=== PATIENT | female | born 1965 | race Caucasian/White ===

== ENCOUNTER 2023-05-05 07:56 | Outpatient (OUT) | payer OTHER, SELFPAY ==
--- NOTE | 2023-05-05 08:01 | MM_ITS ---
Patient: TYLER WALTER Exam Date: 05/05/2023 : 1965 Gender:F Ordering : DR Malathi Ely M.D. Admission #: [id number] Family : Order #: [id number] CLICK HERE TO VIEW EXAM RADIOLOGY REPORT PROCEDURE: MM TOMOSYNTHESIS SCREENING BI COMPARISON: MG MAMM SCREEN 3D BELINDA CAD, 04/18/2021. MG MAMM SCREEN 3D BELINDA CAD, 05/02/2022. INDICATIONS: Screening mammogram Z12.31 Calculator Name NCI Breast Cancer Risk Assessment Tool 5 Year Breast Cancer Risk 2.70% Lifetime Breast Cancer Risk 13.20% Personal Breast Cancer No Personal Ovarian Cancer No Treatments None Family Cancers Mother with breast cancer at age 50; Aunt-maternal with breast cancer at age 50; Aunt-maternal with breast cancer at age 50; Aunt-maternal with breast cancer at age 50; Aunt-maternal with breast cancer at age 50; Aunt-maternal with breast cancer at age ~50; Father with laryngeal cancer at age 50; Father with lung cancer at age 75; Brother with prostate cancer at age 62. LOCATION: [facility] BREAST COMPOSITION: Heterogeneously dense,which may obscure small masses. FINDINGS: DIAGNOSTIC CATEGORY 2--BENIGN FINDING. NO CHANGE FROM COMPARISON. kScattered benign-appearing nodules are present. Scattered benign-appearing calcifications are present. Scattered benign-appearing lymph nodes are present. RIGHT BREAST: No significant suspicious finding. LEFT BREAST: No significant suspicious finding. Stable focal asymmetry upper outer quadrant, mid breast RECOMMENDATIONS: ROUTINE MAMMOGRAM AND CLINICAL EVALUATION IN 12 MONTHS. PLEASE NOTE: A NORMAL MAMMOGRAM DOES NOT EXCLUDE THE POSSIBILITY OF BREAST CANCER. A CLINICALLY SUSPICIOUS PALPABLE LUMP SHOULD BE BIOPSIED. Dictated by: Tarun Lawton MD on 05/05/2023 at 13:10 Approved by: Tarun Lawton MD on 05/05/2023 at 13:11
== END 2023-05-05 07:57 | disposition home or self-care (01) ==
LOC: MAMMO 07:56
PROVIDERS: PCP Family Medicine; Visit Provider Family Medicine
DX: Z12.31 Encounter for screening mammogram for malignant neoplasm of breast (principal); Z80.3 Family history of malignant neoplasm of breast; Z80.1 Family history of malignant neoplasm of trachea, bronchus and lung; Z80.8 Family history of malignant neoplasm of other organs or systems
CPT/HCPCS: 77063; 77067

== ENCOUNTER 2023-09-12 09:26 | Outpatient (OUT) | payer OTHER, SELFPAY ==
[2023-09-12 10:10] LABS: Bilirubin Urine NEGATIVE (NEGATIVE); Blood Urine NEGATIVE (NEGATIVE); Clarity Urine CLEAR (CLEAR); Color Urine LT. YELLOW (YELLOW); Glucose Urine UA NEGATIVE (NEGATIVE); Ketones Urine NEGATIVE (NEGATIVE); Leukocyte Esterase Urine NEGATIVE (NEGATIVE); Nitrite Urine NEGATIVE (NEGATIVE); Protein Urine NEGATIVE (NEG/TRACE); Specific Gravity Urine 1.015 (1.005-1.025); Urobilinogen Urine 0.2 EU/dL (0.2-1.0)
[2023-09-12 10:12] LABS: Basophils Percent Auto 0.6 % (0.2-2.0); Eosinophils Absolute Auto 0.1 10^3/uL (0.0-0.7); Eosinophils Percent Auto 1.7 % (0.9-7.0); Hematocrit 38.8 % (36.0-48.0); Hemoglobin 12.7 g/dL (12.0-16.0); Immature Granulocytes Abs Auto 0.04 10^3/uL (0.00-0.03); Immature Granulocytes Pct Auto 0.6 % (0.0-0.5); Lymphocytes Percent Auto 27.9 % (20.5-60.0); Mean Corpuscular HGB Conc 32.7 g/dL (29.9-35.2); Mean Corpuscular Hemoglobin 29.5 pg (26.7-34.0); Mean Platelet Volume 9.7 fL (9.5-13.5); Monocytes Absolute Auto 0.5 10^3/uL (0.3-0.8); Monocytes Percent Auto 7.6 % (1.7-12.0); Neutrophils Absolute Auto 4.3 10^3/uL (1.4-6.5); Neutrophils Percent Auto 61.6 % (43.0-75.0); Platelet Count 438 10^3/uL (150-450); Red Blood Count 4.31 10^6/uL (4.20-5.40); Red Cell Distribution Width 12.9 % (11.0-15.0)
[2023-09-12 10:16] LABS: Urine Microscopic Indicated NO
[2023-09-12 10:26] LABS: Alanine Aminotransferase 27 U/L (14-59); Albumin Globulin Ratio 0.9; Albumin Level 3.9 g/dL (3.4-5.0); Alkaline Phosphatase 93 U/L (46-116); Anion Gap 14.6; Aspartate Amino Transferase 22 U/L (15-37); BUN Creatinine Ratio 12.1; Bilirubin Total 0.3 mg/dL (0.2-1.0); Calcium 9.5 mg/dL (8.5-10.1); Carbon Dioxide 28.2 mmol/L (21.0-32.0); Chloride 101 mmol/L (98-107); Estimated GFR (African America >60 (>=60); Estimated GFR (Non-African Ame >60 (>=60); Globulin 4.2 g/dL; Glucose 97 mg/dL (74-106); Potassium 3.8 mmol/L (3.5-5.1); Sodium 140 mmol/L (136-145); Total Protein 8.1 g/dL (6.4-8.2)
== END 2023-09-12 09:27 | disposition home or self-care (01) ==
LOC: LAB 09:27
PROVIDERS: PCP Family Medicine; Visit Provider Family Medicine
DX: N32.89 Other specified disorders of bladder (principal); R10.9 Unspecified abdominal pain
CPT/HCPCS: 36415; 80053; 81003; 85025

== ENCOUNTER 2024-04-12 09:06 | Outpatient (OUT) | payer OTHER, SELFPAY ==
[2024-04-12 12:42] LABS: Estimated Average Glucose 108 mg/dL; Glycohemoglobin A1C 5.4 % (4.5-6.2)
[2024-04-12 12:51] LABS: Alanine Aminotransferase 25 U/L (14-59); Albumin Globulin Ratio 1.1; Albumin Level 4.1 g/dL (3.4-5.0); Alkaline Phosphatase 74 U/L (46-116); Anion Gap 13.9; Aspartate Amino Transferase 17 U/L (15-37); BUN Creatinine Ratio 21.1; Bilirubin Total 0.4 mg/dL (0.2-1.0); Calcium 9.3 mg/dL (8.5-10.1); Carbon Dioxide 28.3 mmol/L (21.0-32.0); Chloride 104 mmol/L (98-107); Chol HDL Ratio 4.1; Cholesterol 297 mg/dL (<=200); Estimated GFR (African America >60 (>=60); Estimated GFR (Non-African Ame >60 (>=60); Globulin 3.6 g/dL; Glucose 100 mg/dL (74-106); HDL Cholesterol 73 mg/dL (40-60); Potassium 4.2 mmol/L (3.5-5.1); Sodium 142 mmol/L (136-145); Total Protein 7.7 g/dL (6.4-8.2); Triglycerides 142 mg/dL (<=150); VLDL CHOLESTEROL 28.4 mg/dL
== END 2024-04-12 09:07 | disposition home or self-care (01) ==
LOC: LAB 09:07
PROVIDERS: PCP Family Medicine; Visit Provider Family Medicine
DX: Z00.00 Encounter for general adult medical examination without abnormal findings (principal)
CPT/HCPCS: 36415; 80053; 80061; 83036

== ENCOUNTER 2024-05-10 08:43 | Outpatient (OUT) | payer OTHER, SELFPAY ==
--- NOTE | 2024-05-10 08:48 | MM_ITS ---
Patient Name: TYLER WALTER MR#: [id number] : 1965 Exam Date: 05/10/2024 Ordering Doctor: DR Malathi Ely M.D. RADIOLOGY REPORT PROCEDURE: MM TOMOSYNTHESIS SCREENING BI COMPARISON: MM TOMOSYNTHESIS SCREENING BI, 05/05/2023. MG MAMM SCREEN 3D BELINDA CAD, 05/02/2022. MG MAMM SCREEN 3D BELINDA CAD, 04/18/2021. MG MAMM BELINDA SCRN W CAD DIG, 10/14/2013. INDICATIONS: Screening Calculator Name NCI Breast Cancer Risk Assessment Tool 5 Year Breast Cancer Risk 2.80% Lifetime Breast Cancer Risk 12.90% Personal Breast Cancer No Personal Ovarian Cancer No Treatments None Family Cancers Mother with breast cancer at age 50; Aunt-maternal with breast cancer at age 50; Aunt-maternal with breast cancer at age 50; Aunt-maternal with breast cancer at age 50; Aunt-maternal with breast cancer at age 50; Aunt-maternal with breast cancer at age ~50; Father with laryngeal cancer at age 50; Father with lung cancer at age 75; Brother with prostate cancer at age 62. LOCATION: [facility] BREAST COMPOSITION: The breasts are heterogeneously dense,which may obscure small masses. FINDINGS: DIAGNOSTIC CATEGORY 2--BENIGN FINDING: RIGHT BREAST: No significant suspicious finding. Scattered benign-appearing lymph nodes are present. No significant change has occurred. LEFT BREAST: No significant suspicious finding. Scattered benign-appearing lymph nodes are present. No significant change has occurred. RECOMMENDATIONS: ROUTINE MAMMOGRAM AND CLINICAL EVALUATION IN 12 MONTHS. PLEASE NOTE: A NORMAL MAMMOGRAM DOES NOT EXCLUDE THE POSSIBILITY OF BREAST CANCER. A CLINICALLY SUSPICIOUS PALPABLE LUMP SHOULD BE BIOPSIED. Dictated by: Manish Montalvo M.D. on 05/11/2024 at 15:21 Approved by: Manish Montalvo M.D. on 05/11/2024 at 15:23
--- NOTE | 2024-05-10 09:14 | XR_ITS ---
[address] [address] Patient Name: TYLER WALTER MRN: [id number] date: 1965 Sex: F Assigned Patient Location: [facility] Current Patient Location: [facility] Accession/Order Number: [id number] Exam Date: 05/10/2024 09:05 Report Date: 05/10/2024 10:21 At the request of: PÉREZ SERRANO Procedure: XR DEXA axial skeleton EXAMINATION: XR DEXA axial skeleton HISTORY: Osteoporosis M81.0 COMPARISON: DEXA bone densitometry 05/02/2022 TECHNIQUE: Dual-energy X-ray absorptiometry (DXA) was performed. FINDINGS: SPINE ANALYSIS: Average bone mineral density is 1.158 g/cm2. T-score (standard deviation relative to young adult mean): -0.2 . +2.3% change since prior study. HIP ANALYSIS: Lowest bone mineral density is within the left femoral neck, 0.782 g/cm2. T-score (standard deviation relative to young adult mean): -1.8 . -0.5% change since prior study. XR/XR DEXA axial skeleton IMPRESSION: World Health Organization Classification: Osteopenia - Moderate Fracture Risk FRAX: Cannot be calculated. Pharmacologic treatment recommendations * No uniform recommendation applies to all patients. Management plans must be individualized. * Consider initiating pharmacologic treatment in postmenopausal women and men >= 50 years of age who have the following: Primary fracture prevention: * T-score <= - 2.5 at the femoral neck, total hip, lumbar spine, 33% radius (some uncertainty with existing data) by DXA. * Low bone mass (osteopenia: T-score between - 1.0 and - 2.5) at the femoral neck or total hip by DXA with a 10-year hip fracture risk >= 3% or a 10-year major osteoporosis-related fracture risk >= 20% (i.e., clinical vertebral, hip, forearm, or proximal humerus) based on the US-adapted FRAXregistered model. Secondary fracture prevention: * Fracture of the hip or vertebra regardless of BMD [4, 5]. * Fracture of proximal humerus, pelvis, or distal forearm in persons with low bone mass (osteopenia: T-score between - 1.0 and - 2.5). The decision to treat should be individualized in persons with a fracture of the proximal humerus, pelvis, or distal forearm who do not have osteopenia or low BMD [12, 13]. Lupe MS, Mayur SL, Shanon KL, Анна EM, Taiwo KG, AJ, Carlie ES. The clinician's guide to prevention and treatment of osteoporosis. Osteoporos Int. 2021;33(10):5737-2736. doi: 10.1007/v15150-178-99660-d. Epub 2021Mar 07. Erratum in: Osteoporos Int. 2021Jun 06;: PMID: [id number]; PMCID: [id number]. Electronically authenticated by: PHIL HERNANDEZ Date: 05/10/2024 10:21
== END 2024-05-10 08:44 | disposition home or self-care (01) ==
LOC: MAMMO 08:43
PROVIDERS: PCP Family Medicine; Visit Provider Family Medicine
DX: Z12.31 Encounter for screening mammogram for malignant neoplasm of breast (principal); M81.0 Age-related osteoporosis without current pathological fracture; Z80.3 Family history of malignant neoplasm of breast; Z80.1 Family history of malignant neoplasm of trachea, bronchus and lung; Z80.42 Family history of malignant neoplasm of prostate; Z80.8 Family history of malignant neoplasm of other organs or systems; M85.80 Other specified disorders of bone density and structure, unspecified site
CPT/HCPCS: 77063; 77067; 77080

== ENCOUNTER 2025-04-14 09:14 | Outpatient (OUT) | payer OTHER, SELFPAY ==
--- OUTSIDE RECORDS SUMMARY | 2025-04-14 05:02 | XMS_ITS | Continuity of Care Document ---
Author Organization [facility] Address [address] [place] [address] Phone Support Name Relationship Address Phone Barry Terry Emergency Contact [address] [facility] [address] [place] [address] Satish Sands Emergency Contact Unknown Malathi Ely MD Personal Relationship [address] [place] [address] Care Teams Patient Care Team Team Status: Active Member Role Status Dates Malathi Ely MD Primary Care Provider Active Patient Care Team Team Status: Inactive Member Role Status Dates Malathi Ely MD Primary Care Provide r, Attending Provider Active Start: April 14, 2025 End: April 14, 2025 Chief Complaint and Reason for Visit Chief Complaint Admit Date Wellness April 14, 2025 8:24a m Reason for Visit Admit Date Screening mammogram for breast cancer 2024 8:24am Wellness examination April 14, 2025 8:24 am Allergies, Adverse Reactions, Alerts Allergen Type Severity Reaction Last Updated Verified Status amoxicillin Allergy Unknown Rash April 14, 2025 8:38am Yes Active Social History Smoking Status Status Start Date End Date Date of Observa tion Ex-smoker (finding) April 8:21am Observation Status Observation Response Date of Response Patient Sex Female April 14, 2025 9 :01am Assigned Sex Female March 23 3 Family History Relationship Condition Age at Onset Recorded Date/T mellissa mother Malignant neoplasm of breast Unknown Unknown father Unknown Malignant neoplasm of lung Unknown brother Malignant neoplasm of prostate Unknown maternal grandmother Malignant neoplasm of colon Unkno wn Problems Active Problems Medical Problem Onset Date Status Comments Screening mammogram for tyrone st cancer Active Osteoporosis Active Problem List cl reanna-up per request of Phys. EHR Cmte Wellness examination Active Post-menopause Active Inactive/Resolved Problems Medical Problem Onset Date Status Comments Epigastric pain Resolved Problem List clean-up per request of Phys. EHR Cmte Heme positive stool Resolved Problem List clean-up per request of Phys. EHR Cmte GERD (gastroesophageal reflu x disease) Resolved Problem List clean-u p per request of Phys. EHR Cmte Nausea Resolved Problem List cl reanna-up per request of Phys. EHR Cmte Medications Medication Status Dose Units Route Directions Qty Days St art Date Stop Date End Date Instructions Ibandronate 150 mg tablet Discont inued 150 MG PO every month 3 June 07, 2024 12:00a m March 24, 2025 1:57p m Ibandronate 150 mg tablet Active 150 MG PO every month March 24, 2025 1:57pm Sucralfate 1 gram tablet Discont inued 1 DOSE PO Four times daily [facility] 2017 1:00am Augus t 2018 12:21 pm Ezetimibe 10 mg tablet Discont inued 10 MG PO Daily [facility] 2017 1:00am April 12, 2024 8:45a m Ibandronate 150 mg tablet Discont inued 1 DOSE PO every month [facility] 2017 1:00am March 24, 2025 1:57p m Atorvastatin (Lipitor) 10 mg Tablet Discont inued 10 MG PO Daily [facility] 2017 1:00am April 12, 2024 8:44a m Calcium Carbonate-Vi tamin D3 (Calcium 500 + D (D3)) 500 mg(1,250mg) -125 unit Tablet Active 1 TAB PO Daily [facility] 2017 1:00am Multivitamin -Min-Iron-Fa -Vit K (Multi For Her) 18 mg iron-600 mcg-40 mcg Capsule Active 1 TAB PO Daily [facility] 2017 1:00am Glucosamine- Chondroitin (Osteo Bi-Flex) 250-200 mg Tablet Discont inued 1 TAB PO Twice daily [facility] 2017 1:00am April 12, 2024 8:45a m Pantoprazole 40 mg tablet,delay ed release (DR/EC) Discont inued 40 MG PO Daily June 23, 2019 12:00a m April 12, 2024 8:45a m Dicyclomine 20 mg tablet Discont inued 20 MG PO Twice daily as needed for Abdominal Discomfort June 23, 2019 12:00a m April 12, 2024 8:45a m Omeprazole 20 mg capsule,serg yed release(DR/E C) Active 20 MG PO Daily April 12, 2024 12:00a m Hyoscyamine Sulfate 0.125 mg tablet Discont inued 0.125 MG PO 2-4 TIMES PER DAY as needed April 12, 2025 12:00a m April 14, 2025 8:39a m Vital Signs Vital Reading Result Reference Range Collection Date/Time Height 63 [in_i] April 14, 2025 8:27am Weight 66.22 kg April 14, 2025 8:27am Heart Rate 62 /min 60-100 April 14, 2025 8:27am BP Systolic 122 mm[Hg] 100-140 April 14, 2025 8:27am BP Diastolic 77 mm[Hg] 60-100 April 14, 2025 8:27am BMI (Body Mass Index) 25.8 kg/m2 April 142024 8:27am Advance Directives Advance Directive Response Recorded Date/ Time Advance Directives No October 11:29am Insurance Providers Guarantor Vaishnavi Terry Address [address] [place] [phone] Contact Info. Home Phone: Payer Policy Id Coverage Id Subscriber's Name Subscriber Id Effective Date Expiration Date [facility] [id number] Vaishnavi Terry [id number] Encounters Encounter Location(s) Arrival/Admit Date Discharge/Depart Date Provider(s) Departed Physician/Prov ider Office Visit [facility] April 14, 2025 8:24am April 14, 2025 9:01am Malathi Ely MD Recent Diagnosis Onset Date Admit Date Screening mammogram for breast cancer April 14, 2025 8:24am Wellness examination April 14, 8:24am Assessments Diagnosis Onset Date Resolution Status Admit Date Screening mammogram for tyrone st cancer acute April 14, 2025 8 :24am Wellness examination acute April 14, 2025 8:24am Plan of Treatment Future Tests Future scheduled test information is unavailable Pending Tests Test Name Ordered Date Scheduled Date Comprehensive Metabolic Panel April 14, 2025 8:5 2am Future Visits Future appointment information is unavailable Referrals to Other Providers Referral information is unavailable Future Procedures Procedure Name Ordered Date Scheduled Date Lipid Panel April 14, 2025 8:52am Future Medications Future medication information is unavailable Patient Instructions Patient instructions are unavailable
--- OUTSIDE RECORDS SUMMARY | 2025-04-14 09:17 | XMS_ITS | Clinical Summary ---
Author Organization [facility] Address [id number] [address] [id number] Care Team Providers Care Health Program Director Name Role Phone Unavailable Primary Care Provider Unavailabl e Social History Tobacco Use Types Packs/Day Years Used Date Smoking Tobacco: Never Assessed Childcare Answer Date Recorded Childcare Unknown 04/21/2019 Employment Answer Date Recorded Employment Unknown 04/21/2019 Comments Unknown Sex and Gender Information Value Date Recorded Sex Assigned at Not on file Legal Sex Female 11:23 AM EDT Gender Identity Not on file Sexual Orientation Not on file Plan of Treatment Not on file Medical Devices Not on file
--- OUTSIDE RECORDS SUMMARY | 2025-04-14 09:17 | XMS_ITS | Clinical Summary ---
Author Organization [facility] Address [address] [place] [address] Phone Care Team Providers Care Repairer Handtools Name Role Phone Juan Lal MD Primary Care Provider [phone] Social History Tobacco Use Types Packs/Day Years Used Date Smoking Tobacco: Never Assessed Comments Unknown Sex and Gender Information Value Date Recorded Sex Assigned at Not on file Legal Sex Female 7:52 PM EST Gender Identity Not on file Sexual Orientation Not on file Plan of Treatment Not on file Care Teams Repairer Handtools Relationship Specialty Start Date End Date Juan Lal MD [address] [place] [address] PCP - General 09/14/13
--- OUTSIDE RECORDS SUMMARY | 2025-04-14 09:17 | XMS_ITS | Clinical Summary ---
Author Organization [facility] Address [address] [place] [address] Care Team Providers Care Digital Sales Assistant Name Role Phone Malathi Ely MD Primary Care Provider [phone] Allergies Active Allergy Reactions Criticality Noted Date Comments Amoxicillin Rash Low 07/29/2023 Medications ibandronate (Boniva) 150 MG tablet 06/16/2023 Active Family History Medical History Relation Name Comments Cancer Brother prostate Cancer Father lung and throat Cancer Mother Breast- reaccur ance age 75 Relation Name Status Comments Brother patient has 2 b rothers Father Mother Social History Tobacco Use Types Packs/Day Years Used Date Smoking Tobacco: Never Tobacco Cessation:Counseling Given: Not Answered Alcohol Use Standard Drinks/Week Comments Never 0 (1 standard drink = 0.6 oz pure alcohol) caffeine: 1-2 cups per day coffee Comments Unknown Sex and Gender Information Value Date Recorded Sex Assigned at Female 05/24/2024 11:25 AM EDT Legal Sex Female 6:41 PM EDT Gender Identity Female 05/24/2024 11:25 AM EDT Sexual Orientation Straight 05/24/2024 11 :25 AM EDT Last Filed Vital Signs Vital Sign Reading Time Taken Comments Blood Pressure 124/78 07/29/2023 10:33 AM EDT Pulse - - Temperature - - Respiratory Rate - - Oxygen Saturation - - Inhaled Oxygen Concentration - - Weight 67.6 kg (149 lb) 07/29/2023 10:33 AM EDT Height 161.3 cm (5' 3.5 ) 07/29/2023 10:33 AM ED T Body Mass Index 25.98 07/29/2023 10:33 AM EDT Plan of Treatment Health Maintenance Due Date Last Done Comments CT Colonography 1965 Colonoscopy 1965 Colorectal Cancer Screening 1965 FIT-DNA 1965 FIT 1965 FOBT 1965 Sigmoidoscopy 1965 HPV/Cotest 1993 Mammogram 2003 Cervical Cancer Screening 10/17/2020 Pap Smear 10/17/2020 10/17/2017, 09/21/2015 Influenza Vaccine (Season Ended) 2025 Procedures Procedure Name Priority Date/Time Associated Diagnosis Comments PAP SMEAR Routine 10/17/2017 12:00 AM EST from Last 3 Months or Most Recently Relevant to Health Maintenance Results * Pap Smear (10/17/2017 12:00 AM EST) Swab Cervical swab / Unknown us Historical Provider LAB CYTOLOGY ORDERABLES F inal Result EXTERNAL LAB from Last 3 Months or Most Recently Relevant to Health Maintenance Insurance [employer] Care Teams Digital Sales Assistant Relationship Specialty Start Date End Date Malathi Ely MD PCP - General Family Medicine 07/22/23
[2025-04-14 10:13] LABS: Alanine Aminotransferase 25 U/L (14-59); Alkaline Phosphatase 119 U/L (46-116); Anion Gap 14.7; Aspartate Amino Transferase 22 U/L (15-37); Bilirubin Total 0.2 mg/dL (0.2-1.0); Calcium 10.1 mg/dL (8.5-10.1); Carbon Dioxide 28.3 mmol/L (21.0-32.0); Chloride 103 mmol/L (98-107); Chol HDL Ratio 4.2; Cholesterol 260 mg/dL (<=200); Estimated GFR (African America >60 (>=60 mL/min/1.73m^2); Estimated GFR (Non-African Ame >60 (>=60 mL/min/1.73m^2); Globulin 4.2 g/dL; Glucose 104 mg/dL (74-106); HDL Cholesterol 62 mg/dL (40-60); Sodium 142 mmol/L (136-145); Total Protein 8.2 g/dL (6.4-8.2); Triglycerides 139 mg/dL (<=150); VLDL CHOLESTEROL 27.8 mg/dL
== END 2025-04-14 09:15 | disposition home or self-care (01) ==
LOC: LAB 09:15
PROVIDERS: PCP Family Medicine; Visit Provider Family Medicine
DX: Z00.00 Encounter for general adult medical examination without abnormal findings (principal)
CPT/HCPCS: 36415; 80053; 80061

== ENCOUNTER 2025-05-12 08:58 | Outpatient (OUT) | payer OTHER, SELFPAY ==
--- NOTE | 2025-05-12 09:00 | MM_ITS ---
Patient Name: TYLER WALTER MR#: [id number] : 1965 Exam Date: 05/12/2025 Ordering Doctor: DR PÉREZ SERRANO M.D. RADIOLOGY REPORT PROCEDURE: MM TOMOSYNTHESIS SCREENING BI COMPARISON: MM TOMOSYNTHESIS SCREENING BI, 05/10/2024. MM TOMOSYNTHESIS SCREENING BI, 05/05/2023. MG MAMM SCREEN 3D BELINDA CAD, 05/02/2022. MG MAMM BELINDA SCRN W CAD DIG, 10/14/2013. INDICATIONS: Screening Calculator Name NCI Breast Cancer Risk Assessment Tool 5 Year Breast Cancer Risk 2.80% Lifetime Breast Cancer Risk 12.50% Personal Breast Cancer No Personal Ovarian Cancer No Treatments None Family Cancers Mother with breast cancer at age 50; Aunt-maternal with breast cancer at age 50; Aunt-maternal with breast cancer at age 50; Aunt-maternal with breast cancer at age 50; Aunt-maternal with breast cancer at age 50; Aunt-maternal with breast cancer at age ~50; Father with laryngeal cancer at age 50; Father with lung cancer at age 75; Brother with prostate cancer at age 62. LOCATION: [facility] BREAST COMPOSITION: There are scattered areas of fibroglandular density. FINDINGS: DIAGNOSTIC CATEGORY 1--NEGATIVE. RIGHT BREAST: No significant suspicious finding. LEFT BREAST: No significant suspicious finding. RECOMMENDATIONS: ROUTINE MAMMOGRAM AND CLINICAL EVALUATION IN 12 MONTHS. PLEASE NOTE: A NORMAL MAMMOGRAM DOES NOT EXCLUDE THE POSSIBILITY OF BREAST CANCER. A CLINICALLY SUSPICIOUS PALPABLE LUMP SHOULD BE BIOPSIED. Dictated by: Gee Kiser DO on 05/12/2025 at 15:31 Approved by: Gee Kiser DO on 05/12/2025 at 15:32
--- OUTSIDE RECORDS SUMMARY | 2025-05-12 09:19 | XMS_ITS | CCD ---
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 Role Phone Malathi Serrano Unavailable DR MALATHI SERRANO Primary Care Unavailable ZACH, DR MALATHI Rogers Consulting Unavailable ZACH, DR MALATHI Rogers Attending Unavailable AZCH, DR MALATHI Rogers Admitting Unavailable DR MANISH MONTALVO Consulting Unavailable ZACH, DR MALATHI Rogers Admitting Unavailable ZACH, DR MALATHI Rogers Primary Care Unavailable ZACH, DR MALATHI Rogers Attending Unavailable ZACH, DR MALATHI Rogers Consulting Unavailable MD Zee Camahco Attending Provider [phone] MD Malathi Serrano Primary Care Provider Malathi Serrano Primary Care Unavailable Zee Camacho Attending Unavailable Zee Camacho Admitting Unavailable IDRIS Nieto Attending Provider [phone] Allergies Allergy Classification Reported Allergen(s) Allergy Type Date of Onset Reaction(s) Facility (6 sources) Amoxicillin Drug Allergy 04-12-20 24 Unknown, [facility] (1 source) Amoxicillin Drug Allergy 11-10-19 13 [facility] (3 sources) Pseudoephedrine Drug Allergy 10-22-20 18 Unknown [facility] Other (1 source) 12 Hour Decongestant Allergy to substance 04-09-20 24 [facility] (1 source) Amoxicillin Drug Allergy 05-04-20 24 [facility] Repository Medications Current Medications Medication Drug Class(es) Dates Sig (Normalized) Sig (Original) Calcium (5 sources) Phosphate Binder, Calcium Calcium + D Active calcium carbonate 1250 mg / cholecalciferol 125 unt oral tablet (4 sources) Vitamin D Start: 10-30-2018 take 1 tablet by mouth once daily Calcium Carbonate-Vitamin D3 (Calcium 500 + D (D3)) 500 mg(1,250mg) -125 unit Tablet Active 1 TAB PO Daily October 30, 2018 1:00am ibandronic acid 150 mg oral tablet (11 sources) Bisphosphonate Start: 10-30-2018 End: 03-24-2025 take 1 tablet by mouth every month Ibandronate 150 mg tablet Active 150 MG PO every month 3 90 March 24, 2025 1:57pm Multivitamin preparation (5 sources) Multivitamin Active Jjkikfmyznrd-Mcw-Opoz -Fa-Vit K (Multi For Her) 18 mg iron-600 mcg-40 mcg Capsule (4 sources) Start: 10-30-2018 take 1 tablet by mouth once daily Multivitamin-Min- Iron-Fa-Vit K (Multi For Her) 18 mg iron-600 mcg-40 mcg Capsule Active 1 TAB PO Daily October 30, 2018 1:00am omeprazole 20 mg delayed release oral capsule (3 sources) Proton Pump Inhibitor Start: 04-12-2024 take 1 capsule by mouth once daily Omeprazole 20 mg capsule,delayed release(DR/EC) Active 20 MG PO Daily April 12, 2024 12:00am Completed/Discontinued Medications Medication Drug Class(es) Dates Sig (Normalized) Sig (Original) atorvastatin 10 mg oral tablet (7 sources) HMG-CoA Reductase Inhibitor Start: 10-30-2018 End: 04-12-2024 take 1 tablet by mouth once daily Atorvastatin (Lipitor) 10 mg Tablet Discontinued 10 MG PO Daily October 30, 2018 1:00am April 12, 2024 8:44am chondroitin sulfates 200 mg / glucosamine hydrochloride 250 mg oral tablet (4 sources) Start: 10-30-2018 End: 04-12-2024 take 1 tablet by mouth twice daily Glucosamine-Chond roitin (Osteo Bi-Flex) 250-200 mg Tablet Discontinued 1 TAB PO Twice daily October 30, 2018 1:00am April 12, 2024 8:45am dicyclomine hydrochloride 20 mg oral tablet (4 sources) Anticholinergic Start: 06-23-2019 End: 04-12-2024 take 1 tablet by mouth twice daily as needed Dicyclomine 20 mg tablet Discontinued 20 MG PO Twice daily as needed for Abdominal Discomfort June 23, 2019 12:00am April 12, 2024 8:45am ezetimibe 10 mg oral tablet (4 sources) Dietary Cholesterol Absorption Inhibitor Start: 10-30-2018 End: 04-12-2024 take 1 tablet by mouth once daily Ezetimibe 10 mg tablet Discontinued 10 MG PO Daily October 30, 2018 1:00am April 12, 2024 8:45am hyoscyamine sulfate 0.125 mg oral tablet (3 sources) Start: 04-12-2025 End: 04-14-2025 Hyoscyamine Sulfate 0.125 mg tablet Discontinued 0.125 MG PO 2-4 TIMES PER DAY as needed April 12, 2025 12:00am April 14, 2025 8:39am Hyoscyamine Sulf ate 0.125 MG take 1 tablet by mouth every 8 hours if needed for - 7 DAY SUPPLY for 7 Active pantoprazole 40 mg delayed release oral tablet (4 sources) Proton Pump Inhibitor Start: 06-23-2019 End: 04-12-2024 take 1 tablet by mouth once daily Pantoprazole 40 mg tablet,delayed release (DR/EC) Discontinued 40 MG PO Daily June 23, 2019 12:00am April 12, 2024 8:45am sucralfate 1000 mg oral tablet (4 sources) Aluminum Complex Start: 10-30-2018 End: 06-23-2019 take 1 tablet by mouth four times daily Sucralfate 1 gram tablet Discontinued 1 DOSE PO Four times daily October 30, 2018 1:00am June 23, 2019 12:21pm Problems Active Problems Problem Classification Problem Date Documented Da te Episodic/Chronic Abdominal pain (6 sources) Pelvic and perineal pain; Translations: [Unspecified abdominal pain] Episodic Comment on above: Problem List clean-u p per request of Phys. EHR Cmte Disorders of lipid metabolism (6 sources) Dyslipidemia; Translations: [Hyperlipidemia, unspecified] Chronic Esophageal disorders (9 sources) Gastroesophageal reflux disease; Translations: [Gastro-esophageal reflux disease without esophagitis] 10-22-2023 Chronic Comment on above: Problem List clean-u p per request of Phys. EHR Cmte Genitourinary symptoms and ill-defined conditions (1 source) Dysuria Episodic Nausea and vomiting (4 sources) Nausea; Translations: [Nausea] 10-22-2023 Episodic Comment on above: Problem List clean-u p per request of Phys. EHR Cmte Osteoporosis (18 sources) Senile osteoporosis; Translations: [Age-related osteoporosis without current pathological fracture] Onset: Chronic Comment on above: Problem List clean-u p per request of Phys. EHR Cmte Other and unspecified benign neoplasm (5 sources) History of polyp of colon; Translations: [Personal history of colonic polyps] Episodic Other diseases of bladder and urethra (2 sources) Spasm of bladder; Translations: [Other specified disorders of bladder] Chronic Other diseases of bladder and urethra (1 source) Other specified disorders of bladder Chronic Other gastrointestinal disorders (4 sources) Occult blood in stools; Translations: [Other fecal abnormalities] 10-22-2023 Episodic Comment on above: Problem List clean-u p per request of Phys. EHR Cmte Other nutritional; endocrine; and metabolic disorders (5 sources) Body mass index 30+ - obesity; Translations: [Body mass index (BMI) 30.0-30.9, adult] Chronic Other screening for suspected conditions (not mental disorders or infectious disease) (11 sources) Encounter for screening mammogram for malignant neoplasm of breast; Translations: [Patient encounter status] Onset: Episodic Residual codes; unclassified (2 sources) Postmenopausal state; Translations: [Asymptomatic menopausal state] 06-03-2024 Episodic Residual codes; unclassified (1 source) Asymptomatic menopausal state; Translations: [Asymptomatic postmenopausal status (age-related) (natural)] 06-03-2024 Episodic Past or Other Problems Problem Classification Problem Date Documented Da te Episodic/Chronic Residual codes; unclassified (1 source) Family history of malignant neoplasm of breast; Translations: [FAMILY HX MALIG NEOPLASM OF BREAST] Onset: 05-07-2022 Episodic Residual codes; unclassified (1 source) Family history of malignant neoplasm of trachea, bronchus and lung; Translations: [FAM HX MALIG NEOPLSM TRACH BRON LNG] Onset: 05-07-2022 Episodic Residual codes; unclassified (1 source) Family history of malignant neoplasm of prostate; Translations: [FAMILY HX MALIG NEOPLASM PROSTATE] Onset: 05-07-2022 Episodic Residual codes; unclassified (1 source) Family history of malignant neoplasm of other organs or systems; Translations: [FAM HX MALIG NEOPLASM OTH ORGN/SYS] Onset: 05-07-2022 Episodic Results Test Name Value Interpretation Reference Range Facility Basophils Auto (Bld) [#/Vol] Ordered By: Radha Nieto on 06-03-2024 Basophils (Bld) [#/Vol] 0.1 10*3/uL 0.0-0.2 [facility] Basophils/100 WBC Auto (Bld) Ordered By: Radha Nieto on 06-03-2024 Basophils/100 WBC (Bld) 1.1 % . [facility] Eosinophils Auto (Bld) [#/Vo l]Ordered By: Radha Nieto on 06-03-2024 Eosinophils (Bld) [#/Vol] 0.2 10*3/uL 0.0-0.45 [facility] Eosinophils/100 WBC Auto (Bl d)Ordered By: Radha Nieto on 06-03-2024 Eosinophils/100 WBC (Bld) 2.6 % . [facility] Erythrocyte distribution wid th Auto (RBC) [Ratio]Ordered By: Radha Nieto on 06-03-2024 Erythrocyte distribution width (RBC) [Ratio] 13.9 % 11.9-15.3 [facility] Hematocrit Auto (Bld) [Volum e fraction]Ordered By: Radha Nieto on 06-03-2024 Hematocrit (Bld) [Volume fraction] 39.8 % 34.0-46.4 [facility] Hemoglobin [Mass/volume] in BloodOrdered By: Radha Nieto on 06-03-2024 Hemoglobin (Bld) [Mass/Vol] 13.5 g/dL 11.8-15.4 [facility] Leukocytes [#/volume] correc freida for nucleated erythrocytes in Blood by Automated counOrdered By: Radha Nieto on 06-03-2024 WBC corrected for nucl RBC Auto (Bld) [#/Vol] 7.6 10*3/uL 3.8-11.6 [facility] Lymphocytes Auto (Bld) [#/Vo l]Ordered By: Radha Nieto on 06-03-2024 Lymphocytes (Bld) [#/Vol] 2.7 10*3/uL 1.00-4.8 [facility] Lymphocytes/100 WBC Auto (Bl d)Ordered By: Radha Nieto on 06-03-2024 Lymphocytes/100 WBC (Bld) 36.0 % . [facility] MCH Auto (RBC) [Entitic mass ]Ordered By: Radha Nieto on 06-03-2024 MCH (RBC) [Entitic mass] 29.3 pg 24.7-34.3 [facility] MCHC Auto (RBC) [Mass/Vol]Or dered By: Radha Nieto on 06-03-2024 MCHC (RBC) [Mass/Vol] 33.9 g/dL 32.0-35.0 [facility] MCV Auto (RBC) [Entitic vol] Ordered By: Radha Nieto on 06-03-2024 MCV (RBC) [Entitic vol] 86.3 fL 80-100 [facility] Monocytes Auto (Bld) [#/Vol] Ordered By: Radha Nieto on 06-03-2024 Monocytes (Bld) [#/Vol] 0.7 10*3/uL 0.0-0.8 [facility] Monocytes/100 WBC Auto (Bld) Ordered By: Radha Nieto on 06-03-2024 Monocytes/100 WBC (Bld) 9.1 % . [facility] Neutrophils Auto (Bld) [#/Vo l]Ordered By: Radha Nieto on 06-03-2024 Neutrophils (Bld) [#/Vol] 3.9 10*3/uL 1.8-7.7 [facility] Neutrophils/100 WBC Auto (Bl d)Ordered By: Radha Nieto on 06-03-2024 Neutrophils/100 WBC (Bld) 51.2 % . [facility] Nucleated erythrocytes [Pres ence] in Blood by Automated countOrdered By: Radha Nieto on 06-03-2024 Nucleated RBC Auto Ql (Bld) 0.1 /100{WBC} 0-0.5 [facility] Parathyrin.intact [Mass/volu me] in Serum or PlasmaOrdered By: Radha Nieto on 06-03-2024 Parathyrin.intact [Mass/Vol] 44.0 pg/mL 12- [facility] Platelet mean volume Auto (B ld) [Entitic vol]Ordered By: Radha Nieto on 06-03-2024 Platelet mean volume (Bld) [Entitic vol] 8.0 fL 6.3-10.7 [facility] Platelets Auto (Bld) [#/Vol] Ordered By: Radha Nieto on 06-03-2024 Platelets (Bld) [#/Vol] 438 10*3/uL 150-450 [facility] RBC Auto (Bld) [#/Vol]Ordere d By: Radha Nieto on 06-03-2024 RBC (Bld) [#/Vol] 4.61 10*6/uL 3.60-5.00 [facility] Thyrotropin [Units/volume] i n Serum or PlasmaOrdered By: Radha Nieto on 06-03-2024 TSH Qn 1.30 m[IU]/L 0.45-5.33 [facility] Vitamin D+Metabolites [Mass/ volume] in Serum or PlasmaOrdered By: Radha Nieto on 06-03-2024 Vitamin D+Metabolites [Mass/Vol] 51.0 ng/mL 30-100 [facility] Comment on above: VITAMIN D STATUS 25( [place])VITAMIN D RANGE (ng/mL) Deficient <20 Insufficient 20 to <30Sufficient 30 to 100Reference: Bernadette MF,Oumar NC, Gian DAVILA, et al. Evaluation,treatment, and prevention of vitamin D deficiency; an Endocrine Society clinical practice guideline. JCEM. 2010; 96(7):1911-30. WBC Auto (Bld) [#/Vol]Ordere d By: Radha Nieto on 06-03-2024 WBC (Bld) [#/Vol] 7.6 10*3/uL 3.8-11.6 [facility] Cesar 05-04-2024 L Specimen: [id number] Received: 05/04/24 Status: LAYA Arrieta Num: [id number] Spec Type: Surgical Subm Dr: Zee Camacho MD Tissues: A Colon Biopsy (ASCENDING COLON POLYP) B Colon Biopsy (TRANSVERSE COLON POLYP) C Colon Biopsy (SIGMOID POLYP) D Colon Biopsy (RECTAL POLYP) Procedures: HE/8, Gross/Micro L4/4 Age/ Patient Sex Location Account Attending Physician Vaishnavi Walter 59/F [id number] Zee Camacho MD SPEC NUM: [id number] RECD: 05/04/24 STATUS: LAYA [facility] NUM: [id number] VANESSA: 05/04/24 [facility] DR: Zee Camacho MD ENTERED: 05/04/[address] [facility] [address]: SPEC TYPE: Surgical DEPT: S ORDERED: HE/8, Gross/Micro L4/4 ORDERED: HE/8, Gross/Micro L4/4 Pathological Diagnosis A. Polyp, ascending colon, biopsy: Tubular Adenoma. - Negative For High Grade Dysplasia And Malignancy. B. Polyp, transverse colon, biopsy: Tubular Adenoma. - Negative For High Grade Dysplasia And Malignancy. C. Polyp, sigmoid colon, biopsy: Tubular Adenoma. - Negative For High Grade Dysplasia And Malignancy. D. Polyp, rectum, biopsy: Tubular Adenoma. - Negative For High Grade Dysplasia And Malignancy. Clinical Information History of colon polyps Gross Description Received are 4 formalin filled containers each labeled with the patient's name, date of and specific specimen site. A. Further labeled ascending polyp is a 0.4 x 0.2 x 0.1 cm ramirez polypoid tissue fragment, Specimen: [id number] Received: 05/04/24 Status: LAYA Meenakshi Num: [id number] Spec Type: Surgical Subm Dr: Zee Camacho MD Tissues: A Colon Biopsy (ASCENDING COLON POLYP) B Colon Biopsy (TRANSVERSE COLON POLYP) C Colon Biopsy (SIGMOID POLYP) D Colon Biopsy (RECTAL POLYP) Procedures: HE/8, Gross/Micro L4/4 Patient: Vaishnavi Walter [id number] (Continued) Specimen: [id number] Received: 05/04/24 (Continued) Gross Description (Continued) Signed (signature on file) Harman Hargrove MD 05/05/24 1448 Specimen: [id number] Received: 05/04/24 Status: LAYA Arrieta Num: [id number] Spec Type: Surgical Subm Dr: Zee Camacho MD Tissues: A Colon Biopsy (ASCENDING COLON POLYP) B Colon Biopsy (TRANSVERSE COLON POLYP) C Colon Biopsy (SIGMOID POLYP) D Colon Biopsy (RECTAL POLYP) Procedures: Umair GONZALEZ/Anjana L4/4 Patient: Vaishnavi Walter [id number] (Continued) Specimen: [id number] Received: 05/04/24 (Continued) Gross Description (Continued) entirely submitted in A1. B. Further labeled transverse polyp is a 0.3 x 0.3 x 0.1 cm ramirez polypoid tissue fragment, entirely submitted in B1. C. Further labeled sigmoid polyp is a 0.3 x 0.3 x 0.2 cm ramirez polypoid tissue fragment, entirely submitted in C1. D. Further labeled rectal polyp are multiple ramirez polypoid tissue fragments measuring in aggregate 1.6 x 0.8 x 0.2 cm, entirely submitted in D1. CPT Codes 16552o4 Specimen: [id number] Received: 05/04/24 Status: LAYA Arrieta Num: [id number] Spec Type: Surgical Subm Dr: Zee Camacho MD Tissues: A Colon Biopsy (ASCENDING COLON POLYP) B Colon Biopsy (TRANSVERSE COLON POLYP) C Colon Biopsy (SIGMOID POLYP) D Colon Biopsy (RECTAL POLYP) Procedures: MARINA/Mini, Gross/Micro L4/4 Patient: Vaishnavi Walter Yakelin [id number] (Continued) Signed (signature on file) Harman Hargrove MD 05/05/24 1448 Normal [facility] Cholesterol in LDL Calc [Mas s/Vol]on 04-12-2024 Cholesterol in LDL [Mass/Vol] 196.0 mg/dL [facility] Comment on above: <100 mg/dl [id number] 0-129 mg/dl NEAR OR ABOVE [id number] mg/dl BORDERLINE [id number] mg/dl HIGH>190 mg/dl VERY HIGH Cholesterol in VLDL Calc [Ma ss/Vol]on 04-12-2024 Cholesterol in VLDL [Mass/Vol] 28.4 mg/dL [facility] Estimated glomerular filtrat ion rate (GFR) non- Americanon 04-12-2024 GFR/1.73 sq M.predicted among non-blacks MDRD (S/P/Bld) [Vol rate/Area] mL/min/{1.73_m2} >=60 [facility] Globulin Calc (S) [Mass/Vol] on 04-12-2024 Globulin (S) [Mass/Vol] 3.6 g/dL [facility] Glucose mean value [Mass/vol ume] in Blood Estimated from glycated hemoglobinon 04-12-2024 Average glucose Estimated from glycated hemoglobin (Bld) [Mass/Vol] 108 mg/dL [facility] Laboratory - Chemistry and C hemistry - challengeon 04-12-2024 Albumin [Mass/Vol] 4.1 g/dL 3.4-5.0 [facility] ALP [Catalytic activity/Vol] 74 U/L 46-116 [facility] ALT [Catalytic activity/Vol] 25 U/L 14-59 [facility] AST [Catalytic activity/Vol] 17 U/L 15-37 [facility] Bilirubin [Mass/Vol] 0.4 mg/dL 0.2-1.0 [facility] Calcium [Mass/Vol] 9.3 mg/dL 8.5-10.1 [facility] Chloride [Moles/Vol] 104 mmol/L 98-107 [facility] Cholesterol [Mass/Vol] 297 mg/dL High <=200 [facility] Cholesterol in HDL [Mass/Vol] 73 mg/dL High 40-60 [facility] Comment on above: > or =60 mg/dl - LOW CARDIOVASCULAR RISK<40 mg/dl - HIGH CARDIOVASCULAR RISK CO2 [Moles/Vol] 28.3 mmol/L 21.0-32.0 [facility] Creatinine [Mass/Vol] 0.57 mg/dL 0.55-1.02 [facility] GFR/1.73 sq M.predicted MDRD (S/P/Bld) [Vol rate/Area] mL/min/{1.73_m2} >=60 [facility] Glucose [Mass/Vol] 100 mg/dL 74-106 [facility] Potassium [Moles/Vol] 4.2 mmol/L 3.5-5.1 [facility] Protein [Mass/Vol] 7.7 g/dL 6.4-8.2 [facility] Sodium [Moles/Vol] 142 mmol/L 136-145 [facility] Triglyceride [Mass/Vol] 142 mg/dL <=150 [facility] Urea nitrogen [Mass/Vol] 12.0 mg/dL 7.0-18.0 [facility] Urea nitrogen/Creatinine [Mass ratio] 21.1 mg/mg [facility] Laboratory - Hematology and Cell countson 04-12-2024 HbA1c (Bld) [Mass fraction] 5.4 % 4.5-6.2 [facility] Comment on above: ADA RECOMMENDED LIMI T 4.0 - 6.0ADA THERAPEUTIC TARGET < 7.0ACTION SUGGESTED> 7.0 Serum or plasma albumin/glob ulin mass ratioon 04-12-2024 Albumin/Globulin [Mass ratio] 1.1 {ratio} [facility] Serum or plasma anion gap de terminationon 04-12-2024 Anion gap [Moles/Vol] 13.9 mmol/L [facility] Serum or plasma total choles terol/high density lipoprotein (HDL) cholesterol mass jake 04-12-2024 Cholesterol.total/Ch olesterol in HDL [Mass ratio] 4.1 {ratio} [facility] Comment on above: 3.3 - 4.4 LOW RISK4. 4 - 7.1 AVERAGE RISK7.1 - 11.0 MODERATE RISK>11.0 HIGH RISK Urinalysis - DIPSTICKon 07-11 Appearance (U) clear [employer] Other Bilirubin Ql (U) Negative [employer] Other Color (U) light yellow [employer] Other Glucose Ql (U) Negative [employer] Other Hemoglobin Ql (U) Negative [employer] Other Ketones Ql (U) Negative [employer] Other Leukocyte esterase Test strip Ql (U) Negative [employer] Other Nitrite Ql (U) Negative [employer] Other pH (U) 5.0 [pH] [employer] Other Protein Ql (U) Negative [employer] Other Specific gravity (U) [Rel density] 1.000 [employer] Other Urobilinogen (U) [Mass/Vol] 0.2 mg/dL [employer] Other Urinalysis - DIPSTICK [employer] Other GLYCOHEMOGLOBIN A1Con 2022 ADA RECOMMENDATION SEE BELOW Normal [facility] Comment on above: Result Comment: ADA RECOMMENDED LIMIT 4.0 - 6.0 ADA THERAPEUTIC TARGET < 7.0 ACTION SUGGESTED > 7.0 Performed By: #### A 1C #### [facility] [address] [place] [address] Dr. Levi Dill Glucose [Mass/Vol] 117 mg/dL Normal [facility] Comment on above: Performed By: #### A 1C #### [facility] [address] [address] [address] Levi Dill HbA1c (Bld) [Mass fraction] 5.7 % Normal 4.5-6.2 [facility] Comment on above: Performed By: #### A 1C #### [facility] [address] [place] [address] Dr. Levi Dill LIPID PROFILEon 04-04-2023 CHOL-HDL RATIO NORM SEE BELOW Normal [facility] Comment on above: Result Comment: 3.3 - 4.4 LOW RISK 4.4 - 7.1 AVERAGE RISK 7.1 - 11.0 MODERATE RISK >11.0 HIGH RISK Performed By: #### C MP, LIPID #### [facility] [address] [place] [address] Dr. Levi Dill Cholesterol [Mass/Vol] 212 mg/dL Critically high <=200 [facility] Comment on above: Performed By: #### C MP, LIPID #### [facility] [address] [place] [address] Dr. Levi Dill Cholesterol in HDL [Mass/Vol] 79 mg/dL Critically high 40-60 [facility] Comment on above: Performed By: #### C MP, LIPID #### [facility] [address] [place] [address] Dr. Levi Dill Cholesterol in LDL [Mass/Vol] 100.2 mg/dL Normal [facility] Comment on above: Performed By: #### C MP, LIPID #### [facility] [address] [place] [address] Dr. Levi Dill Cholesterol.total/Ch olesterol in HDL [Mass ratio] 2.7 {ratio} Normal [facility] Comment on above: Performed By: #### C MP, LIPID #### [facility] [address] [address] [address] Levi Dill HDL NORMAL > or = 60 mg/dl - LOW CARDIOVASCULAR RISK <40 mg/dl - HIGH CARDIOVASCULAR RISK Normal [facility] Comment on above: Performed By: #### C MP, LIPID #### [facility] [address] [address] [address] Levi Dill LDL CALC NORMAL SEE BELOW Normal [facility] Comment on above: Result Comment: <100 mg/dl OPTIMAL 100 - 129 mg/dl NEAR OR ABOVE OPTIMAL 130 - 159 mg/dl BORDERLINE HIGH 160 - 189 mg/dl HIGH >190 mg/dl VERY HIGH Performed By: #### C MP, LIPID #### [facility] [address] [address] [address] Levi Dill Triglyceride [Mass/Vol] 164 mg/dL Critically high <=150 [facility] Comment on above: Performed By: #### C MP, LIPID #### [facility] [address] [address] [address] Levi Dill VLDL CALC 32.8 mg/dL Normal [facility] Comment on above: Performed By: #### C MP, LIPID #### [facility] [address] [address] [address] Levi Dill PROF 14(COMP METB)on 023 Albumin [Mass/Vol] 4.2 g/dL Normal 3.4-5.0 [facility] Comment on above: Performed By: #### C MP, LIPID #### [facility] [address] [address] [address] Levi Dill Albumin/Globulin [Mass ratio] 1.1 {ratio} Normal [facility] Comment on above: Performed By: #### C MP, LIPID #### [facility] [address] [address] [address] Levi Dill ALP [Catalytic activity/Vol] 74 U/L Normal 46-116 [facility] Comment on above: Performed By: #### C MP, LIPID #### [facility] [address] [address] [address] Levi Dill ALT [Catalytic activity/Vol] 27 U/L Normal 14-59 [facility] Comment on above: Performed By: #### C MP, LIPID #### [facility] [address] [address] [address] Levi Dill Anion gap [Moles/Vol] 14.0 mmol/L Normal [facility] Comment on above: Performed By: #### C MP, LIPID #### [facility] [address] [address] [address] Levi Dill AST [Catalytic activity/Vol] 18 U/L Normal 15-37 [facility] Comment on above: Performed By: #### C MP, LIPID #### [facility] [address] [address] [address] Levi Dill Bilirubin [Mass/Vol] 0.4 mg/dL Normal 0.2-1.0 [facility] Comment on above: Performed By: #### C MP, LIPID #### [facility] [address] [address] [address] Levi Dill Calcium [Mass/Vol] 9.8 mg/dL Normal 8.5-10.1 [facility] Comment on above: Performed By: #### C MP, LIPID #### [facility] [address] [address] [address] Levi Dill Chloride [Moles/Vol] 101 mmol/L Normal 98-107 [facility] Comment on above: Performed By: #### C MP, LIPID #### [facility] [address] [address] [address] Levi Dill CO2 [Moles/Vol] 31.2 mmol/L Normal 21.0-32.0 [facility] Comment on above: Performed By: #### C MP, LIPID #### [facility] [address] [address] [address] Levi Dill Creatinine [Mass/Vol] 0.67 mg/dL Normal 0.55-1.02 [facility] Comment on above: Performed By: #### C MP, LIPID #### [facility] [address] [address] [address] Levi Dill EGFR-AF [place] >60 Normal >=60 [facility] [facility] Comment on above: Performed By: #### C MP, LIPID #### [facility] [address] [address] [address] Levi Dill EGFR-NON AF MOSOTHO >60 Normal >=60 [facility] Comment on above: Performed By: #### C MP, LIPID #### [facility] [address] [address] [address] Levi Dill Globulin (S) [Mass/Vol] 3.8 g/dL Normal [facility] Comment on above: Performed By: #### C MP, LIPID #### [facility] [address] [place] [address] Dr. Levi Dill Glucose [Mass/Vol] 103 mg/dL Normal 74-106 [facility] Comment on above: Performed By: #### C MP, LIPID #### [facility] [address] [address] [address] Levi Dill Potassium [Moles/Vol] 4.2 mmol/L Normal 3.5-5.1 [facility] Comment on above: Performed By: #### C MP, LIPID #### [facility] [address] [address] [address] Levi Dill Protein [Mass/Vol] 8.0 g/dL Normal 6.4-8.2 [facility] Comment on above: Performed By: #### C MP, LIPID #### [facility] [address] [address] [address] Levi Dill Sodium [Moles/Vol] 142 mmol/L Normal 136-145 [facility] Comment on above: Performed By: #### C MP, LIPID #### [facility] [address] [address] [address] Levi Dill Urea nitrogen [Mass/Vol] 13.0 mg/dL Normal 7.0-18.0 [facility] Comment on above: Performed By: #### C MP, LIPID #### [facility] [address], [place] [address] Dr. Levi Dill Urea nitrogen/Creatinine [Mass ratio] 19.4 mg/mg Normal [facility] Comment on above: Performed By: #### C MP, LIPID #### [facility] [address], [place] [address] Dr. Levi Dill MG MAMM SCREEN 3D BELINDA CADon 05-02-2022 MG MAMM SCREEN 3D BELINDA CAD Patient: VAISHNAVI WALTER Exam Date: 05/02/2022 : 1965 Gender:F Ordering : DR MALATHI SERRANO M.D. Admission #: [id number] Family : Order #: [id number] CLICK HERE TO VIEW EXAM RADIOLOGY REPORT PROCEDURE: MAMMOGRAM SCREENING 3D BILATERAL CAD COMPARISON: MG MAMM SCREEN 3D BELINDA CAD, 04/18/2021. MG MAMM SCREEN BELINDA W CAD, 04/12/2020. INDICATIONS: Screening mammography Calculator Name NCI Breast Cancer Risk Assessment Tool 5 Year Breast Cancer Risk 2.60% Lifetime Breast Cancer Risk 13.50% Personal Breast Cancer No Personal Ovarian Cancer No Treatments None Family Cancers Mother with breast cancer at age 50; Aunt-maternal with breast cancer at age 50; Aunt-maternal with breast cancer at age 50; Aunt-maternal with breast cancer at age 50; Aunt-maternal with breast cancer at age 50; Aunt-maternal with breast cancer at age 50; Father with laryngeal cancer at age 50; Father with lung cancer at age 75; Brother with prostate cancer at age 62. LOCATION: [facility] BREAST COMPOSITION: Heterogeneously dense,which may obscure small masses. FINDINGS: DIAGNOSTIC CATEGORY 2--BENIGN FINDING: RIGHT BREAST: No significant suspicious finding. Scattered benign-appearing lymph nodes are present. No significant change has occurred. LEFT BREAST: No significant suspicious finding. Stable, chronic asymmetry within upper-outer quadrant. No significant change has occurred. RECOMMENDATIONS: ROUTINE MAMMOGRAM AND CLINICAL EVALUATION IN 12 MONTHS. PLEASE NOTE: A NORMAL MAMMOGRAM DOES NOT EXCLUDE THE POSSIBILITY OF BREAST CANCER. A CLINICALLY SUSPICIOUS PALPABLE LUMP SHOULD BE BIOPSIED. Dictated by: Manish Montalvo M.D. on 05/02/2022 at 12:47 Approved by: Manish Montalvo M.D. on 05/02/2022 at 12:[address] [facility] XR DEXA BONE DENSITYon 05-02 XR DEXA BONE DENSITY EXAMINATION: XR DEX A BONE DENSITY, 05/02/2022 8:48 AM EDT HISTORY: Senile osteoporosis COMPARISON: DEXA bone densitometry 04/12/2020 TECHNIQUE: Dual-energy X-ray absorptiometry (DEXA) bone density study performed for the axial skeleton. FINDINGS: SPINE ANALYSIS: Average bone mineral density is 1.132 g/cm2. T-score (standard deviation relative to young adult mean): -0.4 . -0.6% change since prior study. HIP ANALYSIS: Lowest bone mineral density is within the left femoral trochanter, 0.546 g/cm2. T-score (standard deviation relative to young adult mean): -2.6 . -3.8% change since prior study. IMPRESSION: World Conrad Organization Classification: Osteoporosis - High Fracture Risk Electronically authenticated by: MANISH MONTALVO Date: 2022-05-02 16:[address] [facility] Vital Signs Date Time Vital Sign Value Performing Clinician Facility 04-14-2025 08:27-0400 Body height 160.02 cm [facility] 04-14-2025 08:27-0400 Body mass index (BMI) [Ratio] 25.8 kg/m2 [facility] 04-14-2025 08:27-0400 Body weight 66.22 kg [facility] 04-14-2025 08:27-0400 Diastolic blood pressure 77 mm[Hg] [facility] 04-14-2025 08:27-0400 Heart rate 62 /min [facility] 04-14-2025 08:27-0400 Systolic blood pressure 122 mm[Hg] [facility] 05-04-2024 11:10-0400 Diastolic blood pressure 81 mm[Hg] MD Malathi Serrano Work Phone: [facility] 05-04-2024 11:10-0400 Heart rate 74 /min MD Malathi Serrano Work Phone: [facility] 05-04-2024 11:10-0400 Respiratory rate 16 /min MD Malathi Serrano Work Phone: [facility] 05-04-2024 11:10-0400 SaO2% (BldA) [Mass fraction] 99 % MD Malathi Serrano Work Phone: [facility] 05-04-2024 11:10-0400 Systolic blood pressure 118 mm[Hg] MD Malathi Serrano Work Phone: [facility] 05-04-2024 08:25-0400 Body height 160.02 cm MD Malathi Serrano Work Phone: [facility] 05-04-2024 08:25-0400 Body weight 68.03 kg MD Malathi Serrano Work Phone: [facility] 04-12-2024 08:20-0400 Body height 160.02 cm [facility] 04-12-2024 08:20-0400 Body mass index (BMI) [Ratio] 26.6 kg/m2 [facility] 04-12-2024 08:20-0400 Body weight 68.15 kg [facility] 04-12-2024 08:20-0400 Diastolic blood pressure 85 mm[Hg] [facility] 04-12-2024 08:20-0400 Heart rate 73 /min [facility] 04-12-2024 08:20-0400 Systolic blood pressure 132 mm[Hg] [facility] 09-12-2023 09:45-0400 Body height 160.02 cm Malathi Serrano Other [facility] Other 09-12-2023 09:45-0400 Body mass index (BMI) [Ratio] 26.04 kg/m2 Malathi Serrano Other [facility] Other 09-12-2023 09:45-0400 Body weight 66.68 kg Malathi Serrano Other [facility] [facility] Other 09-12-2023 09:45-0400 Diastolic blood pressure 85 mm[Hg] Malathi Serrano Other [facility] Other 09-12-2023 09:45-0400 Systolic blood pressure 128 mm[Hg] Malathi Serrano Other [facility] Other 07-22-2023 09:30-0400 Body height 160.02 cm Malathi Serrano Other [facility] Other 07-22-2023 09:30-0400 Body mass index (BMI) [Ratio] 26.39 kg/m2 Malathi Serrano Other [facility] Other 07-22-2023 09:30-0400 Body weight 67.59 kg Malathi Serrano Other [facility] Other 07-22-2023 09:30-0400 Diastolic blood pressure 80 mm[Hg] Malathi Serrano Other [facility] Other 07-22-2023 09:30-0400 Respiratory rate 12 /min Malathi Serrano Other [facility] Other 07-22-2023 09:30-0400 Systolic blood pressure 120 mm[Hg] Malathi Serrano Other [facility] Other 04-03-2023 11:00-0400 Body height 160.02 cm Malathi Serrano Other [facility] Other 04-03-2023 11:00-0400 Body mass index (BMI) [Ratio] 25.86 kg/m2 Malathi Serrano Other [facility] Other 04-03-2023 11:00-0400 Body weight 66.23 kg Malathi Serrano Other [facility] Other 04-03-2023 11:00-0400 Diastolic blood pressure 82 mm[Hg] Malathi Serrano Other [facility] Other 04-03-2023 11:00-0400 Systolic blood pressure 127 mm[Hg] Malathi Serrano Other [facility] Other Encounters Encounter Date Encounter Type Care Provider Facility Start: 04-14-2025 End: 04-14-2025 ambulatory [facility] Work Phone: Start: 04-14-2025 End: 04-14-2025 Encounter for general adult medical examination without abnormal findings [facility] Start: 04-14-2025 End: 04-14-2025 Patient encounter procedure [facility] Work Phone: Start: 06-03-2024 End: 06-03-2024 ambulatory MD Malathi Serrano Work Phone: [facility] Work Phone: Start: 06-03-2024 End: 06-03-2024 Patient encounter procedure MD Malathi Serrano Work Phone: [facility] Start: 05-10-2024 Non-patient / Non-visit MD Malathi Serrano Work Phone: [facility] Work Phone: Start: 05-04-2024 Non-patient / Non-visit MD Malathi Serrano Work Phone: [facility] Work Phone: Start: 05-04-2024 End: 05-04-2024 Admission to same day surgery center MD Malathi Serrano Work Phone: [facility] Work Phone: Start: 05-04-2024 End: 05-04-2024 ambulatory MD Malathi Serrano Work Phone: [facility] Work Phone: Start: 04-12-2024 Patient encounter status [facility] Start: 04-12-2024 End: 04-12-2024 ambulatory [facility] Work Phone: Start: 04-12-2024 End: 04-12-2024 Encounter for general adult medical examination without abnormal findings [facility] Start: 04-12-2024 End: 04-12-2024 Patient encounter procedure [facility] Work Phone: Start: 09-12-2023 End: 09-12-2023 ambulatory Malathi Serrano Other [facility] Other Start: 09-12-2023 Office outpatient visit 15 minutes Malathi Serrano [facility] Start: 09-12-2023 Telephone encounter Malathi Serrano [facility] Start: 07-22-2023 End: 07-22-2023 ambulatory Malathi Serrano Other [facility] Other Start: 07-22-2023 Office outpatient visit 15 minutes Malathi Serrano [facility] Start: 04-23-2023 End: 04-23-2023 ambulatory Malathi Serrano Other [facility] Other Start: 04-23-2023 Telephone encounter Malathi Serrano [facility] Start: 04-06-2023 Encounter for genera l adult medical examination without abnormal findings DR MALATHI SERRANO [facility] Start: 04-04-2023 End: 04-05-[address] MALATHI SERRANO Facility:[facility] Start: 04-04-2023 End: 04-05-2023 Encounter for general adult medical examination without abnormal findings DR MALATHI SERRANO Facility:[facility] Start: 04-03-2023 End: 04-03-2023 ambulatory Malathi Serrano Other [facility] Other Start: 04-03-2023 Encounter for genera l adult medical examination without abnormal findings Malathi Serrano [facility] Start: 04-03-2023 Periodic preventive med est patient 40-64yrs Malathi Serrano [facility] Start: 05-02-2022 End: 05-03-[address] MANISH MONTALVO Facility:[facility] Procedures Date Procedure Procedure Detail Performing Clinician Start: 05-04-2024 Colonoscopy MD Malathi Serrano Work Phone: Plan of Treatment Date Care Activity Detail Author Start: 05-04-2024 [facility] Comprehensive metabo lic 1999 panel - Serum or Plasma [facility] Comprehensive metabo lic 1999 panel - Serum or Plasma [facility] DXA Skeletal system. axial Views for bone density [facility] MG Breast - bilatera l Screening [facility] Patient Education Colon polyps Hemorrhoids (DC) Know your Meds [facility] Work Phone: [facility] Payers Date Payer Category Payer Self-pay [id number] 1965 Unknown [id number] 1965 Unknown [id number] 1961 Private Health Insurance [id number] Unknown MMO [id number] Unknown [id number] Social History Date Type Detail Facility Unknown if ever smoked [facility] Other Sex Assigned At Sex Assigned At Bir th [facility] Other Start: 12-23-2018 Tobacco smoking status CTIS Never smoked tobacco (finding) [facility] Start: 1965 Sex Assigned At Female F [facility] Start: 05-04-2024 Tobacco smoking status NHIS Ex-smoker (finding) [facility] Start: 04-14-2025 Sex Female (finding) [facility] Goals Date Patient Goal Desired Activity /State Clinical Notes 04-03-2023 to 05-04-2024 Note Date & Type Note Facility 05-04-2024 Procedure note [facility] 09-12-2023 Evaluation note Encounter Date Diagnosis Assessment Notes Sep, Bladder spasms (ICD-10 - N32.89) Discussed symptoms, which are better that earlier in the week. Check labs to r/o UTI or other infectious etiology Sep, Acute abdominal pain (ICD-10 - R10.9) as above [facility] Other 09-12-2023 Evaluation note* Encounter Date Diagnosis Assessment Notes Treatment Notes Treatment Clinical Notes Jul, Dysuria (ICD-10 - R30.0) Vaishnavi reassured that the UA was normal. Denies dysuria or frequency Jul, Pelvic pain (ICD-10 - R10.2) Hx of hysterectomy. Possible pelvic wall problem. Information Security Specialist left area. Pt agrees to referral to Dr. Gonzalez. [facility] Other 05-25-2023 Evaluation note* Encounter Date Diagnosis Assessment Notes Treatment Notes Treatment Clinical Notes March, Wellness examination (ICD-10 - Z00.00) Personalized health advice was given to the beneficiary with a referral, if appropriate, to health education of preventative counseling services or programs aimed at reducing identified risk factors and improving self-management or community-based lifestyle interventions to reduce health risks and promote self-management and wellness, including weight loss, physical activity, smoking cessation, fall prevention and nutrition. A written plan for screenings discussed, including colonoscopy, mammography, flu vaccination, other vaccinations if at risk, routine lab studies, eye exams, glaucoma screening, skin checks, risk factors for medical problems discussed, including BP control, obesity, and need for consistent exercise. Counseling was provided here today - specifically in regard to any positively answered questions as noted above. March, Screening mammogram for breast cancer (ICD-10 - Z12.31) March, Dyslipidemia (ICD-10 - E78.5) check labs - continue present med March, Age-related osteoporosis without current pathological fracture (ICD-10 - M81.0) continue med - due for DEXA in 2023 [facility] Other evaluation note* Diagnosis Onset Date Resolution Status Osteoporosis acute Screening mammogram for breast cancer acute Wellness examination acute [facility] Work Phone: evaluation note* Diagnosis Onset Date Resolution Status Osteoporosis acute Screening mammogram for breast cancer acute Wellness examination acute Osteoporosis acute Post-menopause acute [facility] Work Phone: evaluation note* Diagnosis Onset Date Resolution Status Admit Date Screening mammogram for ty[facility] cancer acute April 14, 2025 8 :24am Wellness examination acute April 14, 2025 8:24am [facility] Work Phone: History and physical note Author Zee Camacho [facility] May 04, 2024 10:09am Note Date/Time May 04, 2024 10:1 0am [facility] [address] [place] [address] Gastroenterology H&P Signed Patient: Vaishnavi Walter MR#: [id number] : 1965 Acct:[id number] Age/Sex: 59 / F Adm Date: 4 Loc: Room: Type: [facility] Attending Dr: Zee Camacho MD Copies to: MD Malathi Rodriguez MD~ Date of Service: 05/04/2024 HISTORY & PHYSICAL: Patient's history with special attention to the cardiovascular, pulmonary systems and the current problem was reviewed with the patient immediately prior to the procedure. Present medications and doses reviewed in the EMR. Allergies and pertinent laboratory tests were also reviewedat this time in the EMR. The physical examination, as below, was then performed. Indication, assessment and HPI: 59-year-old female with history of colonic polyps here for surveillance colonoscopy Family history of GI malignancy? No PHYSICAL EXAMINATION General appearance: NAD Skin: No jaundice Head: NC/AT Eyes: Anicteric Neck: Supple Lungs: Normal respiratory effort, no use of accessory muscles Abdomen: nondistended Neuro: Ox3. REVIEW OF SYSTEMS Constitutional: Denies malaise, fevers Cardiovascular: Denies chest pain, palpitations Respiratory: Denies shortness of breath, wheezing Gastrointestinal: As per HPI Genitourinary: Denies dysuria, polyuria Musculoskeletal: Denies joint swelling, joint stiffness Neurological: Denies confusion, numbness, tingling Endocrine: Denies fatigue Written informed consent obtained from the patient. Risks (including but not limited to perforation, infection, bloating, bleeding, need for emergent surgeryand loss of life), benefits and alternatives explained and questions answered. The patient verbalized understanding. Based on history patient is an appropriate candidate for the procedure. Zee Camacho M.D. Documented By: Zee Camacho MD 05/04/24 1001 Signed By: <Electronically signed by Zee Camacho MD> 05/04/24 1009 [facility] Work Phone: History general Narrative - Reported* Type Description Date Medical History hypercholesterolemia Medical History osteoporosis Medical History Esophageal reflux Medical History hyperlipidemia Surgical History hysterectomy 2001 Surgical History appendectomy Surgical History cholecystectomy Hospitalization History see above surgical histo ry [facility] Other Hospital Discharge instructions Additional Instructions DISCHARGE INSTRUCTIONS FOR COLONOSCOPY WHAT TO EXPECT: - You may feel full, gassy or cramping after your procedure. In some cases, this may be from a few hours to a day. Walking may help relieve the discomfort. - If you have polyp(s) removed you may note some minor bloody discharge after your first bowel movements. - You should begin to recover from anesthesia within 1 hour of the procedure, however may feel groggy for the next 24 hours. DO's AND DON'Ts: - Call your doctor right away if you have a hard abdomen, severe pain, are passing lots of bright red blood or clots. - Call your doctor if you develop any rashes, hives or difficulty breathing. - Let your doctor know if you have not had a bowel movement by 3 days after your procedure. - If you take 81 mg aspirin for your heart it is safe to resume this medication. - If you take other blood thinner medications your doctor will instruct you when these can safely be resumed. - Do NOT drive for 24 hours. - Do NOT operate machinery such as power tools, lawn mowers, snow blowers, sewing machines, etc. for 24 hours. - Avoid alcoholic beverages and drugs for allergies, nerves, or sleep. - Do NOT stay alone. Do NOT leave your child unattended. - Do NOT make important personal or business decisions or sign any legal documents. - Eat solid foods and drink liquids in smaller amounts than usual until normal appetite returns. If you should experience an upset stomach, liquids high in sugar content (soda, Ross-Aid, non-acid juices) are recommended. - You can resume normal activities tomorrow. FOLLOW UP & RECOMMENDATIONS: -Notify the doctor if you have any problems. -Repeat colonoscopy in 3 years. -Follow up with PCP. -Office number [phone]. [facility] Work Phone: Summary Purpose Family History Relationship Condition Age at Onset Recorded Date/T mellissa Not Specified Malignant neoplasm of breast Unknown grandparent Malignant neoplasm of colon Unknown father Malignant neoplasm of lung Unknown brother Malignant neoplasm of prostate Unknown father Unknown Not Specified Unknown Relationship Condition Age at Onset Recorded Date/T mellissa Not Specified Malignant neoplasm of breast Unknown Unknown father Unknown Malignant neoplasm of lung Unknown brother Malignant neoplasm of prostate Unknown Not Specified Malignant neoplasm of colon Unknown Relationship Condition Age at Onset Recorded Date/T mellissa mother Malignant neoplasm of breast Unknown Unknown father Unknown Malignant neoplasm of lung Unknown brother Malignant neoplasm of prostate Unknown maternal grandmother Malignant neoplasm of colon Unkno wn Advance Directives Advance Directive Response Recorded Date/ Time Advance Directives No October 11:29am Reason for Referral Reason *FU 07/29 Former Brendon Grimaldo pt, hx hysterectomy - pelvic pain and discomfort. Diagnosis 1 Pelvic pain (R10.2) Referral Organization [facility] kurt Referring Provider First Name Malathi Referring Provider Last Name Zach Referring Provider Specialty [facility] Referred Organization [facility] Referred Provider Ishan Gonzalez Referred Address ,[place], [place],[address] Referred Provider Specialty OB - Gynecol ogy Referral Priority Routine General Notes Arin Horn 12:17:40 PM >received today, attachments made, referral faxed Clinical Notes f: [id number] Chief Complaint and Reason for Visit Chief Complaint Wellness Reason for Visit Osteoporosis Screening mammogram for breast cancer Wellness examination Chief Complaint Wellness hx of colon polyps hx of colon polyps Reason for Visit Osteoporosis Screening mammogram for breast cancer Wellness examination Chief Complaint Wellness hx of colon polyps hx of colon polyps Amb Documentation CONSULT DR. Harleen SERRANO OWN THE BONE Z78.0 M81.0 Reason for Visit Osteoporosis Screening mammogram for breast cancer Wellness examination Osteoporosis Post-menopause Chief Complaint Admit Date Wellness April 14, 2025 8:24a m Reason for Visit Admit Date Screening mammogram for breast cancer Erin 2024 8:24am Wellness examination April 14, 2025 8:24 am Additional Source Comments REASON FOR VISIT (unrecogniz ed section and content) WELLNESS PAP AClabslower abd omen pain, pressure in bladder- possible prolapse issueslabsSTOMACH PAINS INFORMATION SOURCE (unrecogn ized section and content) DATE CREATED AUTHOR 04/18/2023 [facility] DATE CREATED AUTHOR AUTHOR'S ORGANIZ ATION 05/12/2024 The [facility] y[facility] Care Teams (unrecognized sec tion and content) Team Status: Active Member Role Status Dates Malathi Serrano MD Primary Care Provider Active Team Status: Inactive Member Role Status Dates Malathi Serrano MD Primary Care Provide r, Attending Provider Active Start: April 12, 2024 End: April 12, 2024 Team Status: Inactive Member Role Status Dates Zee Camacho MD Attending Provider Active Start: May 04, 2024 End: May 04, 2024 Malathi Serrano MD Primary Care Provider Active Start: May 04, 2024 End: May 04, 2024 Team Status: Active Member Role Status Dates Zee Camahco MD Attending Provider, Other Provider Act cele Start: May 04, 2024 Malathi Serrano MD Primary Care Provider Active Start: May 04, 2024 Team Status: Active Member Role Status Dates Malathi Serrano MD Primary Care Provider Active Start: May 10, 2024 Teresa Pyle Attending Provider Active Start: 2023 Team Status: Inactive Member Role Status Dates Malathi Serrano MD Primary Care Provider Active Start: June 03, 2024 End: June 03, 2024 IDRIS Hayward Attending Provider Active Start: June 03, 2024 End: June 03, 2024 Team Status: Inactive Member Role Status Dates Malathi Serrano MD Primary Care Provide r, Attending Provider Active Start: April 14, 2025 End: April 14, 2025 Goals (unrecognized section and content) Goals may be documented in a n alternate section FOR RECORDS PERTAINING TO PATIENTS WHO ARE OR HAVE BEEN ENROLLED IN A CHEMICAL DEPENDENCY/SUBSTANCEABUSE PROGRAM, SOME INFORMATION MAY BE OMITTED. This clinical summary was aggregated from multiple sources. Caution should be exercised in using it in the provision of clinical care. This summary normalizes information from multiple sources, and as a consequence, information in this document may materially change the coding, format and clinical context of patient data. In addition, data may be omitted in some cases. CLINICAL DECISIONS SHOULD BE BASED ON THE PRIMARY CLINICAL RECORDS. [facility] [employer] [facility] provides no warranty or guarantee of the accuracy or completeness of information in this document.
== END 2025-05-12 08:59 | disposition home or self-care (01) ==
LOC: MAMMO 08:58
PROVIDERS: PCP Family Medicine; Visit Provider Family Medicine
DX: Z12.31 Encounter for screening mammogram for malignant neoplasm of breast (principal); Z80.3 Family history of malignant neoplasm of breast; Z80.1 Family history of malignant neoplasm of trachea, bronchus and lung; Z80.42 Family history of malignant neoplasm of prostate; Z80.8 Family history of malignant neoplasm of other organs or systems
CPT/HCPCS: 77063; 77067